=== PATIENT | male | born 1935 | race Caucasian/White ===

== ENCOUNTER 2021-09-20 16:43 | Emergency (ER) | payer MEDICARE, OTHER, SELFPAY ==
[2021-09-20 17:06] VITALS: BP 130/80; PULSE 80; RESP 16; TEMP 36.8; O2SAT 94; BMI 25.8
--- NOTE | 2021-09-20 17:12 | W.ED.SKABFB ---
HPI - Skin/Abscess/Foreign Bdy General: Chief complaint: Skin/Abscess/Foreign Body Stated complaint: Swollen face on R side Time Seen by Provider: 09/20/21 17:12 History of Present Illness: 85-year-old male patient comes in today with tenderness and swelling to the right face. Patient reports symptoms for the last 3 days. Patient reports no improvement with treatments at home. Patient appears mildly unwell but not toxic. Patient has not been treated for this with any antibiotics or other care. Associated symptoms: Deny fever(s) Review of Systems Const: Denies: fever(s) ENMT: Reports: sinus pain Physical Exam Const: COMMON NORMALS: alert HENMT: COMMON NORMALS: TM's normal bilaterally and Normal external nose present; not normocephalic HEAD & SCALP: other (Swelling of the right face, parotid area); not normocephalic NOSE: Normal external nose present and No nasal discharge present TYMPANIC MEMBRANE: TM's normal bilaterally MOUTH: Normal oral and palatal mucosa present TEETH & GINGIVA: Yes other (Edentulous) THROAT: posterior oropharynx normal Resp: COMMON NORMALS: normal respiratory effort and clear to auscultation bilaterally AUSCULTATION: clear to auscultation bilaterally Cardio: COMMON NORMALS: regular rate and regular rhythm RATE: regular rate RHYTHM: regular rhythm Extremity: COMMON NORMALS: normal to inspection and no pedal edema Neuro: SENSORIUM/ORIENTATION: Yes alert Psych: COMMON NORMALS: cooperative Skin: COMMON NORMALS: no rashes or lesions noted GENERAL SKIN EXAM: no rashes or lesions noted Course Vital Signs: Vital signs: Vital Signs Temperature 98.2 F 09/20/21 17:15 Pulse Rate 80 09/20/21 17:15 Respiratory Rate 16 09/20/21 17:15 Blood Pressure 130/90 09/20/21 17:15 Pulse Oximetry 95 09/20/21 17:15 MDM - Skin/Abscess/Foreign Bdy Medicial Decision Making 85-year-old male patient comes in today with swelling and tenderness to the right preauricular area. Patient reported symptoms for the last 3 to 4 days. No improvement has been noted. On exam there is tenderness on palpation in the right facial area of the preauricular. This is most likely a parotid that is swollen and tender. Differential diagnosis includes sialadenitis viral versus bacterial, mumps, dental infection. Exam noted tenderness and swelling to the right parotid. Suspicion for a bacterial salivary gland infection. We will treat with clindamycin 450 mg three times a day for the next 7 days. Patient was given 110 mg dexamethasone shot. No sign of asymmetry was noted in the posterior pharynx or any airway obstruction or serious illness was noted. Patient reported understanding of diagnosis and need for follow-up or return to the ER. Discharge Plan Discharge Patient Disposition: Home Clinical Impression: Acute bacterial sialadenitis Condition: Stable Prescriptions: New clindamycin HCl 150 mg capsule 450 mg PO Q8H 7 Days Qty: 63 0RF Discharge Orders: Discharge ED (Routine); Ordered 09/20/21 Ordered By: Black Rojas Discharge Diet: Usual diet Discharge Activity: Increase activity as tolerated Patient Instructions: Sialoadenitis (ED) Activity Restrictions/Additional Instructions: Drink plenty of water. Make sure to drink 2 to 3 L of water a day. Good oral care. Take antibiotics clindamycin 3 capsules three times a day for the next 7 days. We should expect decrease in swelling and tenderness over the next 3 to 5 days. If no improvement or worsening symptoms return to the ER or follow-up with primary care. Coding Level of Care Code ED Software Developer Consultant for Jason Juan
[2021-09-20 17:14] VITALS: O2SAT 95
[2021-09-20 17:15] VITALS: BP 130/90; PULSE 80; RESP 16; TEMP 36.8; O2SAT 95
[2021-09-20] MEDS: dexamethasone 10 mg/mL INJ IM (17:23)
[2021-09-20] MEDS: clindamycin 150 mg Capsule 450 MG PO (17:28)
== END 2021-09-20 17:34 | disposition home or self-care (01) ==
PROVIDERS: Emergency Provider Nurse Practitioner Family
DX: K11.21 Acute sialoadenitis (principal)
CPT/HCPCS: 96372; 99283; J1100

== ENCOUNTER 2021-09-24 07:46 | Outpatient (CLI) | payer MEDICARE, SELFPAY ==
--- NOTE | 2021-09-24 08:12 | CT_ITS ---
WS: [id number] CT HEAD WITH AND WITHOUT CONTRAST HISTORY: LOCALIZED SWELLING, LUMP, MASS OF HEAD TECHNIQUE: Noncontrast 2.5 mm axial images obtained from the vertex to the skull base. Additional thomas ging performed at 2.5 mm axial images status post IV contrast. Bone and soft tissue windows are revie wed. All CT scans at [facility] use at least one of these dose optimization techniques: autom ated exposure control; mA and/or kV adjustment per patient size (includes targeted exams where dose i s matched to clinical indication); or iterative reconstruction. CONTRAST: Omnipaque 300; 95 mL IV. DLP: 1999.38 mGy.cm COMPARISON: None. Marker is placed along the LEFT temporal region in the area of the palpable mass. No mass or signific ant asymmetry or edema is noted in the region of the marker. Marker is placed over the LEFT temporali s muscle. No enhancement on the postcontrast images. No acute intracranial hemorrhage, edema or midline shift. Mild atrophy and chronic microvascular ischemic changes in the white matter. No prior infarct. No enh ancing masses or vascular malformations are identified. Dural venous sinuses are normally enhancing. Dominant LEFT vertebral artery. RIGHT vertebral artery is very hypoplastic or even absent distally. B asilar artery is tortuous but intact. Posterior communicating arteries and the anterior communicating artery are normal. Mild plaque scattered within the cavernous and supraclinoid portions of the carot id arteries. Paranasal sinuses as visualized: Clear. Mastoid air cells: Clear. Calvarium and scalp: Intact. There is a low-attenuation nodule with mild peripheral enhancement measuring 7 mm in the superficial lobe of the RIGHT parotid gland. CT/CT head wo/w con [id number] IMPRESSION: 1. No mass or abnormal enhancement over the LEFT calvarium near the temporalis muscle and ear. 2. 7 mm low-attenuation nodule in the superficial RIGHT parotid gland. Recomme nd ultrasound follow-up. The palpable area over the LEFT ear can also be evalua jennifer by ultrasound. No abnormality was noted by CT. 3. 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 4. Mild atherosclerotic plaque within the intracranial carotid arteries.
[2021-09-24 08:44] LABS: Blood Urea Nitrogen 13 mg/dL (8-23)
[2021-09-24] MEDS: iohexol 350 mg/mL 100 mL Btl IV (08:52)
== END 2021-09-24 07:47 | disposition home or self-care (01) ==
PROVIDERS: PCP Family Medicine; Visit Provider Nurse Practitioner
DX: R22.0 Localized swelling, mass and lump, head (principal); I67.82 Cerebral ischemia; G31.9 Degenerative disease of nervous system, unspecified; I65.23 Occlusion and stenosis of bilateral carotid arteries
CPT/HCPCS: 70470; 82565; 84520

== ENCOUNTER 2022-12-17 19:47 | Emergency (ER) | payer MEDICARE, SELFPAY ==
[2022-12-17 19:55] VITALS: BP 138/82; PULSE 67; RESP 22; TEMP 36.7; O2SAT 94; BMI 26.1
[2022-12-17 19:57] VITALS: BP 123/74; PULSE 93; RESP 22; O2SAT 99
--- NOTE | 2022-12-17 20:16 | W.ED.SOB ---
HPI - SOB/Dyspnea General: Chief Complaint: Shortness of Breath/Dyspnea Stated Complaint: SOB Time Seen by Provider: 12/17/22 20:00 Source: patient Limitations: no limitations History of Present Illness: HPI Narrative: This 87-year-old male with a history of COPD presents to the ER with shortness of breath that started getting worse over the last 1 month and cough that has been going on for about a week. Patient states that his shortness of breath was so bad last night so he decided to come in today. He has no fever and denies chest pain. Cough is productive of gunk . He has had 2 breathing treatments today, the last one being around noon. He does not use oxygen at home. Oxygen saturation is currently 94 on room air. Associated symptoms: Reports chest congestion; Deny chest pain or lightheadedness Review of Systems Const: Denies: chills, body aches or change in appetite Eyes: Denies: change in vision or eye discharge ENMT: Denies: throat pain or dental pain Card: Denies: chest pain or lightheadedness Resp: Reports: dyspnea, productive cough, wheezing and chest congestion GI: Denies: diarrhea : Denies: dysuria Musc: Denies: neck pain or back pain Neuro: Denies: headache(s) or weakness in extremities Psych: Denies: depression Hector/Lymph: Denies: easy bruising All/Imm: Denies: urticaria, tongue swelling or facial swelling Physical Exam Const: COMMON NORMALS: patient oriented x3, no limitations and alert HENMT: COMMON NORMALS: normocephalic HEAD & SCALP: normocephalic Eye: COMMON NORMALS: EOMs intact bilaterally Neck/C-Spine: COMMON NORMALS: full ROM and supple Chest: COMMONS NORMALS: normal inspection of the chest Resp: EFFORT & INSPECTION: Yes tachypneic, Yes respiratory distress, Yes labored, Yes audible wheezes and Yes prolonged expiratory phase AUSCULTATION: rales (Bibasilar), wheezes expiratory wheezes, inspiratory wheezes and throughout and diminished lung sounds (Bilaterally) Cardio: COMMON NORMALS: regular rate, regular rhythm and No murmurs present (Cardio) RATE: regular rate RHYTHM: regular rhythm GI: COMMON NORMALS: Normal to inspection, nondistended, normoactive bowel sounds present and non-tender : COMMON NORMALS: Yes no CVA tenderness BLADDER/KIDNEY EXAM: Yes no CVA tenderness Back/Pelvis: COMMON NORMALS: no CVA tenderness and no thoracic nor lumbar tenderness Extremity: GENERAL: Yes normal exam except as noted and Yes edema (Bilateral pitting pedal edema.) Neuro: COMMON NORMALS: patient oriented x3 and no focal motor deficits SENSORIUM/ORIENTATION: Yes alert Psych: COMMON NORMALS: mental status grossly normal and cooperative Course Vital Signs: Vital signs: Vital Signs Temperature 98.1 F 12/17/22 19:55 Pulse Rate 99 12/17/22 21:57 Respiratory Rate 18 12/17/22 21:57 Blood Pressure 131/72 12/17/22 21:57 Pulse Oximetry 93 12/17/22 21:57 Oxygen Delivery Me thod Room Air 12/17/22 21:14 MDM - SOB/Dyspnea Medical Decision Making Medical decision making: Patient has a history of COPD and presents to the ER with shortness of breath that has been going on for about a month. He also has cough that is productive. Oxygen saturation is normal on room air and patient has no fever. White count is 12.2 with no left shift and CMP is unremarkable. Chest x-ray is interpreted as showing a left lower lobe atelectasis versus minimal infiltrate. After receiving breathing treatment, patient noted that he felt better and was ready to go home. Given that he is not needing supplemental oxygen and he showed good response to treatment, we will try outpatient treatment but he was advised to return if she does not improve or he develops any new concerning symptoms. Patient verbalized understanding and agrees with the plan. Lab Data 12/17/22 20:10 12/17/22 20:10 Labs/Radiology: Radiology Impressions Chest X-Ray 12/17/22 20:17 IMPRESSION: 1. Left lower lobe atelectasis versus minimal infiltrate. 2. Emphysematous changes. Laboratory Results WBC 12.2 10^3/uL (4.0-10.0) H 12/17/22 20:10 RBC 5.75 10^6/uL (4.1-5.3) H 12/17/22 20:10 Hgb 15.9 g/dL (11.7-16.6) 12/17/22 20:10 Hct 48.8 % (42.0-52.0) 12/17/22 20:10 MCV 84.9 fl (80-94) 12/17/22 20:10 MCH 27.7 pg (28.0-34.0) L 12/17/22 20:10 MCHC 32.6 g/dL (30.0-36.0) 12/17/22 20:10 RDW 14.3 % (12.1-15.1) 12/17/22 20:10 Plt Count 337 10^3/cmm (130-400) 12/17/22 20:10 MPV 9.2 fL (7.4-10.4) 12/17/22 20:10 Neut % (Auto) 80.2 % 12/17/22 20:10 Lymph % (Auto) 7.2 % 12/17/22 20:10 [place] % (Auto) 9.7 % 12/17/22 20:10 Eos % (Auto) 1.6 % 12/17/22 20:10 Baso % (Auto) 0.6 % 12/17/22 20:10 Neut # (Auto) 9.75 10^3/uL (1.8-7.7) H 12/17/22 20:10 Lymph # (Auto) 0.9 10^3/uL (0.8-4.8) 12/17/22 20:10 [place] # (Auto) 1.2 10^3/uL (0.2-0.9) H 12/17/22 20:10 Eos # (Auto) 0.2 10^3/uL (0.0-0.8) 12/17/22 20:10 Baso # (Auto) 0.1 10^3/uL (0.0-0.1) 12/17/22 20:10 Nucleated RBC % (auto) 0 % 12/17/22 20:10 Nucleated RBCs # 0.0 /100WBC 12/17/22 20:10 Specimen Type Arterial 12/17/22 21:15 Sample Site Brachial, left 12/17/22 21:15 ABG pH 7.45 (7.35-7.45) 12/17/22 21:15 ABG pCO2 39.5 mmHg (35-45) 12/17/22 21:15 ABG pO2 65.4 mmHg (80.0-100.0) L 12/17/22 21:15 ABG HCO3 27.2 mmol/L (22-26) H 12/17/22 21:15 ABG Base Excess 3.0 mmol/L (-2.0-2.0) H 12/17/22 21:15 Waldemar Test N/a 12/17/22 21:15 Hematocrit 49.3 % (42-52) 12/17/22 21:15 Hgb O2 Saturation 92.8 % (95-100) L 12/17/22 21:15 Carboxyhemoglobin 1.4 %THgb (0.4-20.1) 12/17/22 21:15 Methemoglobin 0.2 % (0.4-1.5) L 12/17/22 21:15 Total Hemoglobin 16.1 g/dL (14-18) 12/17/22 21:15 O2 Delivery Device None 12/17/22 21:15 FiO2 21.0 % 12/17/22 21:15 Shift Superintendent ID Alewe 12/17/22 21:15 Sodium 136 mmol/L (136-145) 12/17/22 20:10 Potassium 4.0 mmol/L (3.5-5.1) 12/17/22 20:10 Chloride 98 mmol/L (98-107) 12/17/22 20:10 Carbon Dioxide 25 mmol/L (22-29) 12/17/22 20:10 Anion Gap 17.0 (5-19) 12/17/22 20:10 BUN 11 mg/dL (8-23) 12/17/22 20:10 Creatinine 0.7 mg/dL (0.7-1.2) 12/17/22 20:10 GFR Calculation Not Reportable 12/17/22 20:10 Glucose 115 mg/dL (65-115) 12/17/22 20:10 Calculated Osmolality 282 mOsm/kg (285-295) L 12/17/22 20:10 Calcium 8.8 mg/dL (8.5-10.5) 12/17/22 20:10 Total Bilirubin 0.5 mg/dL (0.15-1.2) 12/17/22 20:10 AST 18 U/L (0-40) 12/17/22 20:10 ALT 18 U/L (0-41) 12/17/22 20:10 Alkaline Phosphatase 75 U/L (40-130) 12/17/22 20:10 NT-Pro-B Natriuret Pep 310 pg/mL (0-450) 12/17/22 20:10 Total Protein 7.5 g/dL (6.6-8.7) 12/17/22 20:10 Albumin 4.1 g/dL (3.5-5.2) 12/17/22 20:10 Globulin 3.4 g/dL (1.3-4.6) 12/17/22 20:10 Discharge Plan Discharge Patient Disposition: Home Clinical Impression: Chronic bronchitis with COPD (chronic obstructive pulmonary disease), Chronic bronchitis with productive mucopurulent cough Condition: Stable Prescriptions: New levofloxacin 750 mg tablet 750 mg PO DAILY 5 Days Qty: 5 0RF prednisone 20 mg tablet 40 mg PO DAILY 5 Days Qty: 10 0RF Discharge Orders: Discharge ED (Routine); Ordered 12/17/22 Ordered By: Tammie Pandey Referrals: Justen Montgomery MD [Primary Care Provider] - Discharge Diet: Usual diet Discharge Activity: Resume usual activity Patient Instructions: Opioid Safety, Pain Management Activity Restrictions/Additional Instructions: Do breathing treatments every 4 hours/as needed for shortness of breath. Take Levaquin and prednisone as prescribed. Follow-up with your primary care physician in 2 to 3 days for reevaluation. Return if you develop any new or worsening symptoms. Coding Level of Care Code ED Aquaculture Program Director for Jason Juan
--- NOTE | 2022-12-17 20:17 | XRR_ITS ---
PROCEDURE INFORMATION: Exam: XR Chest Exam date and time: 12/17/2022 8:36 PM Age: 87 years old Clinical indication: Shortness of breath TECHNIQUE: Imaging protocol: Radiologic exam of the chest. Views: 1 view. COMPARISON: CR XR chest 2V* [id number] 02/13/2019 1:52 PM FINDINGS: Lungs: Left lower lobe atelectasis versus minimal infiltrate. Emphysematous changes. Pleural spaces: Unremarkable. No pleural effusion. No pneumothorax. Heart/Mediastinum: Unremarkable. No cardiomegaly. Bones/joints: Unremarkable. XR/XR chest 1V portable [id number] IMPRESSION: 1. Left lower lobe atelectasis versus minimal infiltrate. 2. Emphysematous changes.
[2022-12-17 20:29] LABS: Basophils # 0.1 10^3/uL (0.0-0.1); Basophils % 0.6 %; Eosinophils # 0.2 10^3/uL (0.0-0.8); Eosinophils % 1.6 %; Hematocrit 48.8 % (42.0-52.0); Hemoglobin 15.9 g/dL (11.7-16.6); Lymphocytes # 0.9 10^3/uL (0.8-4.8); Lymphocytes % 7.2 %; Mean Corpuscular HGB Conc 32.6 g/dL (30.0-36.0); Mean Corpuscular Hemoglobin 27.7 pg (28.0-34.0); Mean Corpuscular Volume 84.9 fl (80-94); Mean Platelet Volume 9.2 fL (7.4-10.4); Monocytes # 1.2 10^3/uL (0.2-0.9); Monocytes % 9.7 %; Neutrophils # 9.75 10^3/uL (1.8-7.7); Neutrophils % 80.2 %; Nucleated Red Blood Cells % 0 %; Platelet Count 337 10^3/cmm (130-400); Red Blood Count 5.75 10^6/uL (4.1-5.3); Red Cell Distribution Width 14.3 % (12.1-15.1); White Blood Count 12.2 10^3/uL (4.0-10.0)
[2022-12-17] MEDS: ipratropium-albuterol 3 mL Neb INHALATION (21:08)
[2022-12-17 21:10] LABS: Alanine Aminotransferase 18 U/L (0-41); Albumin Level 4.1 g/dL (3.5-5.2); Alkaline Phosphatase 75 U/L (40-130); Aspartate Amino Transferase 18 U/L (0-40); Blood Urea Nitrogen 11 mg/dL (8-23); Calcium 8.8 mg/dL (8.5-10.5); Carbon Dioxide 25 mmol/L (22-29); Chloride 98 mmol/L (98-107); Globulin 3.4 g/dL (1.3-4.6); Glucose 115 mg/dL (65-115); NT Pro B Type Natriuretic Pept 310 pg/mL (0-450); Osmolality Calculated 282 mOsm/kg (285-295); Sodium 136 mmol/L (136-145); Total Bilirubin 0.5 mg/dL (0.15-1.2); Total Protein 7.5 g/dL (6.6-8.7)
[2022-12-17 21:11] VITALS: PULSE 89; RESP 18; O2SAT 98
[2022-12-17 21:14] VITALS: PULSE 90; RESP 18; O2SAT 100
[2022-12-17 21:26] LABS: ABG PCO2 39.5 mmHg (35-45); ABG PH Result 7.45 (7.35-7.45); Arterial Blood Gas Hematocrit 49.3 % (42-52); Blood Gas Sample Site Brachial, left; Blood Gas Sample Type Arterial; Carboxyhemoglobin 1.4 %THgb (0.4-20.1); HCO3 ABG 27.2 mmol/L (22-26); HGB O2 Sat 92.8 % (95-100); Methemoglobin 0.2 % (0.4-1.5); PO2 ABG 65.4 mmHg (80.0-100.0); Total Hemoglobin 16.1 g/dL (14-18)
[2022-12-17 21:57] VITALS: BP 131/72; PULSE 99; RESP 18; O2SAT 93
[2022-12-17] MEDS: levoFLOXacin 750 mg Tablet PO (22:44)
[2022-12-17 23:17] VITALS: BP 127/73; PULSE 84; RESP 20; O2SAT 93
== END 2022-12-17 23:18 | disposition home or self-care (01) ==
PROVIDERS: Emergency Provider Family Medicine; PCP Family Medicine
DX: J41.1 Mucopurulent chronic bronchitis (principal)
CPT/HCPCS: 36600; 71045; 80053; 82805; 83880; 85025; 94640; 96374; 99284; J2920

== ENCOUNTER 2022-12-24 18:49 | Emergency (ER) | payer MEDICARE, SELFPAY ==
[2022-12-24] VITALS (13 sets, daily range): BP systolic 95–138; BP diastolic 57–86; PULSE 66–122; RESP 16–23; TEMP 36.7; O2SAT 87–96; BMI 26.4
--- NOTE | 2022-12-24 19:05 | XRR_ITS ---
PROCEDURE INFORMATION: Exam: XR Chest Exam date and time: 12/24/2022 7:33 PM Age: 87 years old Clinical indication: Shortness of breath; Additional info: SOB TECHNIQUE: Imaging protocol: Radiologic exam of the chest. Views: 1 view. COMPARISON: CR XR chest 2V* [id number] 12/21/2022 2:41 PM FINDINGS: Lungs: Emphysematous changes. Bilateral mid lung atelectasis. Pleural spaces: Unremarkable. No pleural effusion. No pneumothorax. Heart/Mediastinum: Unremarkable. No cardiomegaly. Bones/joints: Unremarkable. XR/XR chest 1V portable [id number] IMPRESSION: 1. Emphysematous changes. 2. Bilateral mid lung atelectasis.
--- NOTE | 2022-12-24 19:06 | ECG_ITS ---
[facility] Test Date: 2022-12-24 Pat Name: Abdelrahman Barrios Department: Room: Gender: Male Insert Molding Operator: : 1935 Requested By: Miguel Vallecillo Order Number: [id number] Roma MD: Nando Wyatt M.D. Measurements Intervals [place] Rate: 91 P: 83 [place]: 171 QRS: 48 QRSD: 75 T: 81 QT: 350 QTc: 433 Interpretive Statements SINUS RHYTHM WITH FREQUENT VENTRICULAR PREMATURE COMPLEXES ST DEVIATION AND MODERATE T-WAVE ABNORMALITY, CONSIDER LATERAL ISCHEMIA [-0.1+ mV T-WAVE IN I/aVL/V5/V6] No previous ECG available for comparison Electronically Signed On 12-24-2022 22:33:38 CDT by Nando Wyatt M.D. [id number]
--- NOTE | 2022-12-24 19:09 | ED_ITS ---
HPI - SOB/Dyspnea General: Chief Complaint: Shortness of Breath/Dyspnea Stated Complaint: SOB, Low heart rate Time Seen by Provider: 12/24/22 19:02 Source: patient Mode of arrival: ambulatory Limitations: no limitations History of Present Illness: HPI Narrative: 87-year-old male has a history of COPD was seen here 2 weeks ago states he was diagnosed with pneumonia he finished his antibiotics and steroids states over the last 2 days he is has been feeling weak and has had some bradycardia he states at home. His heart rate here is normal he does have frequent PVCs. He denies any fevers he has had a chronic cough. Pulse ox here is at his baseline. Associated symptoms: Deny abdominal pain, fever(s), nausea or vomiting Review of Systems Const: Denies: fever(s), chills, body aches or change in appetite ENMT: Denies: throat pain or dental pain Card: Reports: irregular heart rhythm Resp: Reports: dyspnea GI: Denies: abdominal pain, nausea, vomiting or diarrhea Musc: Denies: neck pain or back pain Skin/Breast: Denies: rash PFSH ED PFSH: Medical History Chronic bronchitis with COPD (chronic obstructive pulmonary disease) Social History (Updated 12/24/22 @ 19:10 by Miguel Vallecillo MD) Substance/Drug Use: never Physical Exam Const: COMMON NORMALS: no acute distress, patient oriented x3 and healthy appearing HENMT: COMMON NORMALS: normocephalic and atraumatic HEAD & SCALP: normocephalic and atraumatic Eye: COMMON NORMALS: Equal, round and reactive pupils present and EOMs intact bilaterally PUPIL: Yes Equal, round and reactive pupils present Neck/C-Spine: COMMON NORMALS: full ROM and supple Chest: COMMONS NORMALS: normal inspection of the chest and normal palpation of entire chest wall Resp: COMMON NORMALS: normal respiratory effort, No retractions, No use of accessory muscles and clear to auscultation bilaterally AUSCULTATION: clear to auscultation bilaterally Cardio: COMMON NORMALS: regular rate, regular rhythm and No murmurs present (Cardio) RATE: regular rate RHYTHM: regular rhythm GI: COMMON NORMALS: Normal to inspection, nondistended, normoactive bowel sounds present, Soft to palpation, non-tender and no masses PALPATION: Yes Soft to palpation Extremity: COMMON NORMALS: normal to inspection and full ROM Neuro: COMMON NORMALS: patient oriented x3, moves all extremities and no focal motor deficits Psych: COMMON NORMALS: mental status grossly normal, Normal thought process present and cooperative THOUGHT PROCESS: Normal thought process present Skin: COMMON NORMALS: no rashes or lesions noted and no wounds GENERAL SKIN EXAM: no rashes or lesions noted Course Vital Signs: Vital signs: Vital Signs Temperature 98.1 F 12/24/22 18:53 Pulse Rate 88 12/24/22 22:00 Respiratory Rate 23 H 12/24/22 22:00 Blood Pressure 114/76 12/24/22 22:00 Pulse Oximetry 93 12/24/22 22:00 Oxygen Delivery Me thod Nasal Cannula 12/24/22 19:18 Oxygen Flow Rate 2 12/24/22 21:59 MDM - SOB/Dyspnea Medical Decision Making Patient presents here with history of COPD does have some shortness of breath. He feels much improved here on oxygen he is well-appearing he has no signs of pneumonia his troponins here are normal he does have PVCs but no bradycardia here he did qualify for 2 L he feels much better at this time feel he is stable for discharge we will discharge him home on 2 L he is follow-up with PCP and return if worsening. Medical Records I reviewed the patient's medical records. Lab Data I reviewed the patient's lab results. 12/24/22 19:21 12/24/22 19:21 Labs/Radiology: Radiology Impressions Chest X-Ray 12/24/22 19:05 IMPRESSION: 1. Emphysematous changes. 2. Bilateral mid lung atelectasis. Laboratory Results WBC 22.4 10^3/uL (4.0-10.0) H 12/24/22 19:21 RBC 6.42 10^6/uL (4.1-5.3) H 12/24/22 19:21 Hgb 18.0 g/dL (11.7-16.6) H 12/24/22 19:21 Hct 53.8 % (42.0-52.0) H 12/24/22 19:21 MCV 83.8 fl (80-94) 12/24/22 19:21 MCH 28.0 pg (28.0-34.0) 12/24/22 19:21 MCHC 33.5 g/dL (30.0-36.0) 12/24/22 19:21 RDW 14.7 % (12.1-15.1) 12/24/22 19:21 Plt Count 327 10^3/cmm (130-400) 12/24/22 19:21 MPV 9.5 fL (7.4-10.4) 12/24/22 19:21 Neut % (Auto) 82.6 % 12/24/22 19:21 Lymph % (Auto) 5.0 % 12/24/22 19:21 [place] % (Auto) 9.3 % 12/24/22 19:21 Eos % (Auto) 0.9 % 12/24/22 19:21 Baso % (Auto) 0.4 % 12/24/22 19:21 Neut # (Auto) 18.47 10^3/uL (1.8-7.7) H 12/24/22 19:21 Lymph # (Auto) 1.1 10^3/uL (0.8-4.8) 12/24/22 19:21 [place] # (Auto) 2.1 10^3/uL (0.2-0.9) H 12/24/22 19:21 Eos # (Auto) 0.2 10^3/uL (0.0-0.8) 12/24/22 19:21 Baso # (Auto) 0.1 10^3/uL (0.0-0.1) 12/24/22 19:21 Nucleated RBC % (auto) 0 % 12/24/22 19:21 Nucleated RBCs # 0.0 /100WBC 12/24/22 19:21 Specimen Type Arterial 12/24/22 19:16 Sample Site Radial, left 12/24/22 19:16 ABG pH 7.50 (7.35-7.45) H 12/24/22 19:16 ABG pCO2 36.3 mmHg (35-45) 12/24/22 19:16 ABG pO2 62.4 mmHg (80.0-100.0) L 12/24/22 19:16 ABG HCO3 28.2 mmol/L (22-26) H 12/24/22 19:16 ABG Base Excess 5.0 mmol/L (-2.0-2.0) H 12/24/22 19:16 Waldemar Test Pos 12/24/22 19:16 Hematocrit 51.8 % (42-52) 12/24/22 19:16 O2 Delivery Device Nc 12/24/22 19:16 O2 Liters/Min 3.0 % 12/24/22 19:16 Technical Sales Advisor ID [email or web address] 12/24/22 19:16 Sodium 132 mmol/L (136-145) L 12/24/22 19:21 Potassium 3.3 mmol/L (3.5-5.1) L 12/24/22 19:21 Chloride 92 mmol/L (98-107) L 12/24/22 19:21 Carbon Dioxide 27 mmol/L (22-29) 12/24/22 19:21 Anion Gap 16.3 (5-19) 12/24/22 19:21 BUN 18 mg/dL (8-23) 12/24/22 19:21 Creatinine 0.8 mg/dL (0.7-1.2) 12/24/22 19:21 GFR Calculation Not Reportable 12/24/22 19:21 Glucose 104 mg/dL (65-115) 12/24/22 19:21 Calculated Osmolality 276 mOsm/kg (285-295) L 12/24/22 19:21 Calcium 8.6 mg/dL (8.5-10.5) 12/24/22 19:21 Total Bilirubin 1.0 mg/dL (0.15-1.2) 12/24/22 19:21 AST 17 U/L (0-40) 12/24/22 19:21 ALT 25 U/L (0-41) 12/24/22 19:21 Alkaline Phosphatase 66 U/L (40-130) 12/24/22 19:21 Troponin T Baseline 16 ng/L (0-15) H 12/24/22 19:21 Troponin T 120 Minute 14.04 ng/L (0-15) 12/24/22 21:00 Delta Troponin T -1.96 ABS# (0-10) L 12/24/22 21:00 NT-Pro-B Natriuret Pep 296 pg/mL (0-450) 12/24/22 19:21 Total Protein 7.1 g/dL (6.6-8.7) 12/24/22 19:21 Albumin 3.9 g/dL (3.5-5.2) 12/24/22 19:21 Globulin 3.2 g/dL (1.3-4.6) 12/24/22 19:21 SARS-CoV-2 Ag (Rapid) Negative (Negative) 12/24/22 19:49 EKG Data EKG 1: I personally reviewed and interpreted this EKG as follows: EKG Interpretation Date: 12/24/22 EKG interpretation time: 19:06 Interpretation: nsr hr [address] or t wave abonrmalities qrs 75 qtc 399 Discharge Plan Discharge Patient Disposition: Home Clinical Impression: Acute exacerbation of chronic obstructive airways disease Discharge Orders: Discharge ED (Routine); Ordered 12/24/22 Ordered By: Miguel Vallecillo Other Ambulatory Orders: DME: Oxygen (Order) Location: None Selected Ordered By: Miguel Vallecillo Referrals: Justen Montgomery MD [Primary Care Provider] - Discharge Diet: Advance as tolerated Discharge Activity: Resume usual activity Patient Instructions: COPD (Chronic Obstructive Pulmonary Disease) (ED) Coding Level of Care Code ED Associate Pathologist for Jason Juan
[2022-12-24] MEDS: albuterol 2.5 mg/3 mL Neb INHALATION (19:17)
[2022-12-24 19:27] LABS: ABG PCO2 36.3 mmHg (35-45); Arterial Blood Gas Hematocrit 51.8 % (42-52); Blood Gas Allen Test Pos; Blood Gas Sample Site Radial, left; Blood Gas Sample Type Arterial; HCO3 ABG 28.2 mmol/L (22-26); Oxygen Device NC; PO2 ABG 62.4 mmHg (80.0-100.0)
[2022-12-24 19:35] LABS: Basophils # 0.1 10^3/uL (0.0-0.1); Basophils % 0.4 %; Eosinophils # 0.2 10^3/uL (0.0-0.8); Eosinophils % 0.9 %; Hematocrit 53.8 % (42.0-52.0); Lymphocytes # 1.1 10^3/uL (0.8-4.8); Mean Corpuscular HGB Conc 33.5 g/dL (30.0-36.0); Mean Corpuscular Volume 83.8 fl (80-94); Mean Platelet Volume 9.5 fL (7.4-10.4); Monocytes # 2.1 10^3/uL (0.2-0.9); Monocytes % 9.3 %; Neutrophils # 18.47 10^3/uL (1.8-7.7); Neutrophils % 82.6 %; Nucleated Red Blood Cells % 0 %; Platelet Count 327 10^3/cmm (130-400); Red Blood Count 6.42 10^6/uL (4.1-5.3); Red Cell Distribution Width 14.7 % (12.1-15.1); White Blood Count 22.4 10^3/uL (4.0-10.0)
[2022-12-24 19:59] LABS: Troponin(5th) Baseline 16 ng/L (0-15)
[2022-12-24 20:05] LABS: Alanine Aminotransferase 25 U/L (0-41); Albumin Level 3.9 g/dL (3.5-5.2); Alkaline Phosphatase 66 U/L (40-130); Anion Gap 16.3 (5-19); Aspartate Amino Transferase 17 U/L (0-40); Blood Urea Nitrogen 18 mg/dL (8-23); Calcium 8.6 mg/dL (8.5-10.5); Carbon Dioxide 27 mmol/L (22-29); Chloride 92 mmol/L (98-107); Globulin 3.2 g/dL (1.3-4.6); Glucose 104 mg/dL (65-115); NT Pro B Type Natriuretic Pept 296 pg/mL (0-450); Osmolality Calculated 276 mOsm/kg (285-295); Potassium 3.3 mmol/L (3.5-5.1); Sodium 132 mmol/L (136-145); Total Protein 7.1 g/dL (6.6-8.7)
--- NOTE | 2022-12-24 20:07 | PC.NURSE ---
Pt hooked up to continuous bedside cardiac monitoring.
--- NOTE | 2022-12-24 20:54 | ECG_ITS ---
[facility] Test Date: 2022-12-24 Pat Name: Abdelrahman Barrios Department: Room: Gender: Male Signal Wirer: : 1935 Requested By: Miguel Vallecillo Order Number: [id number] Roma MD: Nando Wyatt M.D. Measurements Intervals [place] Rate: 99 P: 87 [place]: 181 QRS: 51 QRSD: 74 T: -35 QT: 461 QTc: 593 Interpretive Statements SINUS RHYTHM WITH FREQUENT VENTRICULAR PREMATURE COMPLEXES NON SPECIFIC ST T WAVE CHANGES No previous ECG available for comparison Electronically Signed On 12-24-2022 21:01:21 CDT by Nando Wyatt M.D. [id number]
[2022-12-24 21:30] LABS: Troponin 5 2HR 14.04 ng/L (0-15)
[2022-12-24 21:42] LABS: SARS Covid-2 Antigen Negative (Negative)
[2022-12-24 22:08] LABS: Troponin 5 2HR Delta -1.96 ABS# (0-10)
== END 2022-12-24 23:16 | disposition home or self-care (01) ==
PROVIDERS: Emergency Provider Emergency Medicine; PCP Family Medicine
DX: J44.1 Chronic obstructive pulmonary disease with (acute) exacerbation (principal)
CPT/HCPCS: 36415; 36600; 71045; 80053; 82803; 83880; 84484; 85025; 87040; 87426; 93005; 94640; 99285; J7613

== ENCOUNTER 2023-02-27 12:37 | Outpatient (CLI) | payer MEDICARE, SELFPAY ==
--- NOTE | 2023-02-27 12:52 | USCV_ITS ---
Abdelrahman Barrios Age: 87 Gender: M : 1935 Exam Date: 02/27/2023 13:19 Ordering Phys: Justen Montgomery MD Technologist: JESSENIA Exam Location: [facility] [place] Indication: CHRONIC HEART FAILURE BP: 132 / 67 HR: 103 Rhythm: Sinus Technical Quality: Adequate MEASUREMENTS (Male / Female) Normal Values 2D ECHO LVOT Diameter 2.0 cm LV Ejection Fraction MOD 2C 58.0 % LV Ejection Fraction 2C AL 57.7 % LA Diameter 2.4 cm LA Width 3.2 cm LA Height 3.8 cm RA Width 2.8 cm RA Height 4.3 cm Aorta at Sinotubular Diameter 2.8 cm M-MODE Aortic Annulus Diameter 2.6 cm LA Ao Ratio MM 0.8 MV E Point Septal Separation 0.9 cm DOPPLER AV Peak Velocity 131.0 cm/s LVOT Peak Velocity 97.0 cm/s AV Area Cont Eq vti 2.2 cm squared AV Area Cont Eq pk 2.3 cm squared MV Peak Velocity 105.0 cm/s MV Area PHT 3.2 cm squared Mitral E to A Ratio 0.7 MV E' Velocity 71.0 cm/s TR Peak Velocity 173.7 cm/s TR Peak Gradient 12.1 mmHg TR Mean Velocity 132.9 cm/s TR Mean Gradient 7.6 mmHg TR Velocity Time Integral 43.8 cm TV Peak E Velocity 54.0 cm/s Right Atrial Pressure 8.0 mmHg Pulmonary Artery Systolic Pressu 20.1 mmHg FINDINGS Left Ventricle Left ventricle is normal in size. LV systolic function is borderline normal with EF 50 to 55%. Regional wall motion abnormalities can not be accurately assessed because of poor ultrasonic windows Right Ventricle Normal in size and function Right Atrium Normal in size Left Atrium Normal in size Mitral Valve Structurally normal mitral valve. Trace mitral regurgitation. Aortic Valve Structurally normal aortic valve. No significant stenosis or regurgitation is seen. Tricuspid Valve Mild tricuspid regurgitation. Insufficient TR jet to calculate RVSP. Pulmonic Valve Not well-visualized Pericardium Normal Aorta Normal in size IVC Not well visualized CONCLUSIONS Technically limited quality echocardiogram because of poor ultrasonic windows. LV systolic function is borderline normal with EF 50 to 55%. Regional wall motion abnormalities cannot be accurately assessed because of limited visualization. Trace mitral regurgitation. Mild tricuspid regurgitation No comparison studies are available. Nando Wyatt MD (Electronically Signed) Final Date: 07 March 2023 22:01 S
== END 2023-02-27 12:38 | disposition home or self-care (01) ==
PROVIDERS: PCP Family Medicine; Visit Provider Family Medicine
DX: I50.9 Heart failure, unspecified (principal); I07.1 Rheumatic tricuspid insufficiency
CPT/HCPCS: 93306

== ENCOUNTER 2023-05-07 10:11 | Emergency (ER) | payer MEDICARE, SELFPAY ==
[2023-05-07] VITALS (7 sets, daily range): BP systolic 99–138; BP diastolic 60–73; PULSE 53–68; RESP 18–20; TEMP 36.6–36.8; O2SAT 94–99; BMI 26.2
--- NOTE | 2023-05-07 10:56 | CTR_ITS ---
PROCEDURE INFORMATION: Exam: CTA Chest With Contrast Exam date and time: 05/07/2023 12:08 PM Age: 87 years old Clinical indication: Dyspnea; Additional info: Dyspnea, abnormal XR TECHNIQUE: Imaging protocol: Computed tomographic angiography of the chest with contrast. Exam focused on the arteries. 3D rendering (Not supervised by radiologist): MIP and/or 3D reconstructed images were created by the technologist. Radiation optimization: All CT scans at this facility use at least one of these dose optimization techniques: automated exposure control; mA and/or kV adjustment per patient size (includes targeted exams where dose is matched to clinical indication); or iterative reconstruction. Contrast material: OMNI 350; Contrast volume: 69 ml; Contrast route: INTRAVENOUS (IV); REPORTING DATA: Count of CT and Cardiac NM exams in prior 12 months: This patient has received 0 known CTs and 0 known cardiac nuclear medicine studies in the 12 months prior to the current study. COMPARISON: CR XR ribs LT mn 3V w CXR1V [id number] 04/27/2023 2:25 PM RADIATION DOSE METRICS: Total DLP (mGy-cm): 392.41 FINDINGS: Pulmonary arteries: No evidence of pulmonary thromboembolism. Aorta: Mild scattered calcific disease of the aorta and its major branches. Lungs: See Pleural spaces finding. Pleural spaces: Chronic appearing pleural thickening. Chronic appearing pleural nodularity with associated mild atelectasis and/or scarring, centered along the lateral left lower lobe. Several associated punctate and tiny calcifications. Additional similar findings along the medial right lower lobe. No suspicious pulmonary nodules or masses. Heart: Heart is normal in size. No pericardial effusion. Lymph nodes: Prominent sub threshold mediastinal and hilar lymph nodes. Left hilar lymph nodes demonstrate chronic calcification. Diaphragm: Tiny hiatal hernia. Gallbladder and bile ducts: Status post cholecystectomy. Spleen: Spleen demonstrates multiple internal calcifications, likely secondary to prior granulomatous disease. Kidneys and ureters: Mild bilateral renal atrophy. Mild nonspecific perinephric stranding. Bones/joints: Diffuse osseous demineralization. Multilevel spondylosis. Chronic compression deformity of the vertebral body of L1 with greater than 50% height loss. Chronic compression deformity of the vertebral body of L2, partially imaged. Mild central compression deformities of the vertebral bodies of T3-T6. No definitively acute osseous findings. No suspicious lytic or blastic osseous lesions. Soft tissues: Superficial soft tissues are within normal limits. CT/CT angio chest PE protcl [id number] IMPRESSION: 1. No evidence of pulmonary thromboembolism. 2. Chronic appearing pleural-based nodularity and scarring, as above.
--- NOTE | 2023-05-07 11:02 | W.ED.BACK ---
HPI - Back Pain/Injury General: Chief Complaint: Back Pain/Injury Stated Complaint: n/v, back pain Time Seen by Provider: 05/07/23 10:14 History of Present Illness: Patient presents to the ER with complaints of right middle back pain and abnormal x-ray of his chest. Patient states his back pain has been going on for couple weeks and last week he followed up with his family doctor they did an x-ray and gave him some pain pills. Pain pills did not seem to work and he said they saw something on his x-ray and he requested a CT scan.. Pain is gotten worse. It is on his right side mid back but it does move up and down but also left and right. Appears to be worse when he takes a big deep breath but not necessarily when he moves and twists. 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) Social History Substance/Drug Use: never Physical Exam Const: COMMON NORMALS: no acute distress, average body habitus, patient oriented x3, no limitations, healthy appearing, alert and well nourished HENMT: COMMON NORMALS: normocephalic, atraumatic, hearing grossly normal bilaterally, external ears normal, Normal external nose present, moist oral mucous membranes and oropharynx normal HEAD & SCALP: normocephalic and atraumatic NOSE: Normal external nose present EXTERNAL EAR: Yes external ears normal Eye: COMMON NORMALS: Equal, round and reactive pupils present, EOMs intact bilaterally, conjunctivae normal and no scleral icterus CONJUNCTIVA: Yes conjunctivae normal PUPIL: Yes Equal, round and reactive pupils present Neck/C-Spine: COMMON NORMALS: full ROM, no lymphadenopathy, supple, no meningeal signs, no JVD and Thyroid normal THYROID: Thyroid normal Chest: COMMONS NORMALS: normal inspection of the chest and normal palpation of entire chest wall Resp: COMMON NORMALS: normal respiratory effort, No retractions, No use of accessory muscles and clear to auscultation bilaterally AUSCULTATION: clear to auscultation bilaterally Cardio: COMMON NORMALS: no JVD, regular rate, regular rhythm, S1 normal heart sound present, S2 normal heart sound present, No gallops present (Cardio), No clicks present (Cardio), No murmurs present (Cardio) and No rub (Cardio) RATE: regular rate RHYTHM: regular rhythm HEART SOUNDS: S1 normal heart sound present and S2 normal heart sound present GI: COMMON NORMALS: Normal to inspection, nondistended, normoactive bowel sounds present, Soft to palpation, non-tender, No hepatosplenomegaly present and no masses PALPATION: Yes Soft to palpation and Yes No hepatosplenomegaly present : COMMON NORMALS: Yes no CVA tenderness BLADDER/KIDNEY EXAM: Yes no CVA tenderness Back/Pelvis: COMMON NORMALS: no CVA tenderness Neuro: COMMON NORMALS: patient oriented x3 SENSORIUM/ORIENTATION: Yes alert MENINGEAL SIGNS: Yes no meningeal signs Course Vital Signs: Vital signs: Vital Signs Temperature 98.2 F 05/07/23 10:27 Pulse Rate 59 L 05/07/23 12:44 Respiratory Rate 20 H 05/07/23 12:37 Blood Pressure 99/65 05/07/23 12:00 Pulse Oximetry 95 05/07/23 12:37 Oxygen Delivery Me thod Nasal Cannula 05/07/23 12:37 Oxygen Flow Rate 2 05/07/23 12:37 MDM - Back Pain/Injury Medical Decision Making patient had lab work done that showed a very mildly elevated white count of 13.8 otherwise benign. Patient had a CTA done to complement the x-ray that his PCP done showed no evidence of PE chronic nodularity and scarring and multiple compression fractures of the thoracolumbar region. Patient is currently on doxycycline and [place] 5 mg from his PCP. We will continue the doxycycline and increase [place] from 5 mg to 10 mg 3 times a day as needed. Patient should follow-up with his PCP in approximately 7 days to see if further testing and/or treatment is warranted for the compression fractures. Differential Diagnosis Likely thoracic back pain; Unlikely lumbar radiculopathy, sciatica, strain of lumbar region, renal colic, pyelonephritis, AAA or discitis Medical Records I reviewed the patient's medical records. Labs I reviewed the patient's lab results. 05/07/23 11:14 05/07/23 11:14 Radiology Impressions Chest CTA 05/07/23 10:56 IMPRESSION: 1. No evidence of pulmonary thromboembolism. 2. Chronic appearing pleural-based nodularity and scarring, as above. Laboratory Results WBC 13.84 10^3/uL (3.29-11.43) H 05/07/23 11:14 RBC 5.40 10^6/uL (3.85-5.65) 05/07/23 11:14 Hgb 15.20 g/dL (11.27-16.99) 05/07/23 11:14 Hct 47.5 % (37-53) 05/07/23 11:14 MCV 88.0 fl (82-101) 05/07/23 11:14 MCH 28.1 pg (27-33) 05/07/23 11:14 MCHC 32.0 g/dL (30-55) 05/07/23 11:14 RDW 14.1 % (12.1-15.1) 05/07/23 11:14 Plt Count 288 10^3/cmm (157-399) 05/07/23 11:14 MPV 8.8 fL (7.4-10.4) 05/07/23 11:14 Neut % (Auto) 89.2 % 05/07/23 11:14 Lymph % (Auto) 2.5 % 05/07/23 11:14 Coffey % (Auto) 6.4 % 05/07/23 11:14 Eos % (Auto) 0.4 % 05/07/23 11:14 Baso % (Auto) 0.6 % 05/07/23 11:14 Neut # (Auto) 12.34 10^3/uL (1.8-7.7) H 05/07/23 11:14 Lymph # (Auto) 0.4 10^3/uL (0.8-4.8) L 05/07/23 11:14 Coffey # (Auto) 0.9 10^3/uL (0.2-0.9) 05/07/23 11:14 Eos # (Auto) 0.1 10^3/uL (0.0-0.8) 05/07/23 11:14 Baso # (Auto) 0.1 10^3/uL (0.0-0.1) 05/07/23 11:14 Nucleated RBC % (auto) 0 % 05/07/23 11:14 Nucleated RBCs # 0.0 /100WBC 05/07/23 11:14 Sodium 131 mmol/L (136-145) L 05/07/23 11:14 Potassium 4.3 mmol/L (3.5-5.1) 05/07/23 11:14 Chloride 93 mmol/L (98-107) L 05/07/23 11:14 Carbon Dioxide 31 mmol/L (22-29) H 05/07/23 11:14 Anion Gap 11.3 (5-19) 05/07/23 11:14 BUN 13 mg/dL (8-23) 05/07/23 11:14 Creatinine 0.7 mg/dL (0.7-1.2) 05/07/23 11:14 GFR Calculation Not Reportable 05/07/23 11:14 Glucose 155 mg/dL (65-115) H 05/07/23 11:14 Calculated Osmolality 275 mOsm/kg (285-295) L 05/07/23 11:14 Calcium 9.0 mg/dL (8.5-10.5) 05/07/23 11:14 Total Bilirubin 0.5 mg/dL (0.15-1.2) 05/07/23 11:14 AST 17 U/L (0-40) 05/07/23 11:14 ALT 16 U/L (0-41) 05/07/23 11:14 Alkaline Phosphatase 79 U/L (40-130) 05/07/23 11:14 Total Protein 7.1 g/dL (6.6-8.7) 05/07/23 11:14 Albumin 3.5 g/dL (3.5-5.2) 05/07/23 11:14 Globulin 3.6 g/dL (1.3-4.6) 05/07/23 11:14 All radiology interpretation(s) finalized by discharge Discharge Plan Discharge Patient Disposition: Home Clinical Impression: Thoracic back pain Condition: Stable Prescriptions: New hydrocodone-acetaminophen 10-325 mg tablet 1 tab PO TID PRN (Reason: pain) Qty: 14 0RF No Action doxycycline hyclate 100 mg capsule 100 mg PO BID tizanidine 2 mg tablet 2 mg PO Q6H PRN (Reason: Muscle Spasm) albuterol sulfate 2.5 mg /3 mL (0.083 %) solution for nebulization See Rx Instructions .ROUTE .COMPLEX Rx Instructions: 2.5 mg inhaled as directed hydrocodone-acetaminophen 5-325 mg tablet 1 tab PO Q4H PRN (Reason: Pain) prednisone 5 mg tablet 5 mg PO DAILY amlodipine-benazepril 5-10 mg capsule 1 cap PO DAILY simvastatin 20 mg tablet 20 mg PO QAM hydrochlorothiazide 25 mg tablet 25 mg PO DAILY gabapentin 100 mg capsule 100 mg PO TID Trelegy Ellipta 100-62.5-25 mcg blister with device 1 inh INHALATION BID Discharge Orders: Discharge ED (Routine); Ordered 05/07/23 Ordered By: Chato Welch Referrals: Justen Montgomery MD [Primary Care Provider] - 1 week Patient Instructions: Vertebral Compression Fracture (ED), Opioid Safety, Pain Management Activity Restrictions/Additional Instructions: please take all medicine as prescribed. Your pain medicine has been increased from 5 mg to 10 mg 3 times a day as needed. Please take the 5 mg you have at home 2 pills at a time until it is used up. Please follow-up with your family practice physician for further evaluation and treatment as you may benefit from treatment of your compression fractures. Please continue the Doxy as Coding Level of Care Code ED T[employer] Technician for Jason Juan
[2023-05-07] MEDS: ketorolac 30 mg/mL INJ IVP (11:15)
[2023-05-07 11:24] LABS: Basophils # 0.1 10^3/uL (0.0-0.1); Basophils % 0.6 %; Eosinophils # 0.1 10^3/uL (0.0-0.8); Eosinophils % 0.4 %; Hematocrit 47.5 % (37-53); Lymphocytes # 0.4 10^3/uL (0.8-4.8); Lymphocytes % 2.5 %; Mean Corpuscular Hemoglobin 28.1 pg (27-33); Mean Platelet Volume 8.8 fL (7.4-10.4); Monocytes # 0.9 10^3/uL (0.2-0.9); Monocytes % 6.4 %; Neutrophils # 12.34 10^3/uL (1.8-7.7); Neutrophils % 89.2 %; Nucleated Red Blood Cells % 0 %; Platelet Count 288 10^3/cmm (157-399); Red Cell Distribution Width 14.1 % (12.1-15.1); White Blood Count 13.84 10^3/uL (3.29-11.43)
[2023-05-07 11:45] LABS: Alanine Aminotransferase 16 U/L (0-41); Albumin Level 3.5 g/dL (3.5-5.2); Alkaline Phosphatase 79 U/L (40-130); Anion Gap 11.3 (5-19); Aspartate Amino Transferase 17 U/L (0-40); Blood Urea Nitrogen 13 mg/dL (8-23); Carbon Dioxide 31 mmol/L (22-29); Chloride 93 mmol/L (98-107); Globulin 3.6 g/dL (1.3-4.6); Glucose 155 mg/dL (65-115); Osmolality Calculated 275 mOsm/kg (285-295); Potassium 4.3 mmol/L (3.5-5.1); Sodium 131 mmol/L (136-145); Total Bilirubin 0.5 mg/dL (0.15-1.2); Total Protein 7.1 g/dL (6.6-8.7)
[2023-05-07] MEDS: iohexol 350 mg/mL 500 mL Btl (per mL) IV (12:12)
[2023-05-07] MEDS: ipratropium-albuterol 3 mL Neb INHALATION (12:37)
== END 2023-05-07 13:57 | disposition home or self-care (01) ==
PROVIDERS: Emergency Provider Emergency Medicine; PCP Family Medicine
DX: M54.6 Pain in thoracic spine (principal); J44.9 Chronic obstructive pulmonary disease, unspecified
CPT/HCPCS: 71275; 80053; 85025; 94640; 96374; 99285; 99291; J1885; Q9967